=== PATIENT | male | born 1950 | race Caucasian/White ===

== ENCOUNTER 2017-01-01 13:45 | Emergency (ER) | payer OTHER, SELFPAY ==
[~2017-01-01 13:45] MED LIST: ASPIR 8181 MG PO; BRILINTA90 MG PO; COZAAR100 MG PO; GLUCOPHAGE 500500 MG PO; GLUCOTROL 10 MG10 MG PO; IMDUR ER TAB 6060 MG PO; JANUVIA25 MG PO; KLONOPIN TAB 00.5 MG PO; LIPITOR TAB 2020 MG PO; LOPRESSOR 25 MG25 MG PO; MEGACE 400400 MG/10 PO; NITROSTAT0.4 MG SL; NORCO 7.5-3251 EACH PO; PLAVIX 75 MG TA75 MG PO; REMERON15 MG PO
[2017-01-01 14:54] LABS: HEMOGLOBIN 14.7 gm/dl (14.0-17.5); RED BLOOD COUNT 5.06 M/UL (4.20-5.50); WHITE BLOOD COUNT 6.9 K/UL (4.5-11.0)
[2017-01-01 15:25] LABS: BUN/CREATININE RATIO 18 (0-10)
[2017-02-03] MEDS ORDERED: NORCO 7.5-3251 EACH PO (13:12)
== END 2017-01-01 19:58 | disposition home or self-care (01) ==
LOC: ER1 13:45
PROVIDERS: Specialist/Technologist Athletic Trainer
DX: K82.4 Cholesterolosis of gallbladder (principal); E11.65 Type 2 diabetes mellitus with hyperglycemia; J44.9 Chronic obstructive pulmonary disease, unspecified; I10 Essential (primary) hypertension; I25.2 Old myocardial infarction; Z95.5 Presence of coronary angioplasty implant and graft; Z87.891 Personal history of nicotine dependence; Z79.84 Long term (current) use of oral hypoglycemic drugs; Z79.891 Long term (current) use of opiate analgesic; Z79.899 Other long term (current) drug therapy; Z79.82 Long term (current) use of aspirin
CPT/HCPCS: 36415; 71010; 76705; 80053; 82550; 82553; 83690; 83874; 84484; 85025; 93005; 99284

== ENCOUNTER → 2017-02-03 | Day surgery (SDC) | payer OTHER, SELFPAY ==
[~2017-02-03] VITALS: Ht 172.7 cm; Wt 79.4 kg
[2017-02-03 08:22] LABS: BUN/CREATININE RATIO 13 (0-10)
== END | disposition home or self-care (01) ==
LOC: OR 06:14
PROVIDERS: Anesthesiology; Surgery
PROC: 0FT44ZZ Resection of Gallbladder, Percutaneous Endoscopic Approach (ICD-10-PCS; principal; 2017-02-03 10:55)
DX: R10.11 Right upper quadrant pain (principal); I25.10 Atherosclerotic heart disease of native coronary artery without angina pectoris; E11.9 Type 2 diabetes mellitus without complications; E78.5 Hyperlipidemia, unspecified; I25.2 Old myocardial infarction; M19.90 Unspecified osteoarthritis, unspecified site; I10 Essential (primary) hypertension; Z95.5 Presence of coronary angioplasty implant and graft; Z79.82 Long term (current) use of aspirin; Z79.891 Long term (current) use of opiate analgesic; Z79.899 Other long term (current) drug therapy; Z87.891 Personal history of nicotine dependence; Z85.828 Personal history of other malignant neoplasm of skin
CPT/HCPCS: 80048; 82962; 93005; J0295; J1100; J1885; J2250; J2405; J2710; J3010; J7030; J7050; J7120; Q9962

== ENCOUNTER 2021-03-14 22:55 | Emergency (ER) | payer OTHER ==
[~2021-03-14 22:55] MED LIST changes: +CIPRO500 MG PO; +DESYREL 50 MG T50 MG PO; +FLAGYL500 MG PO; -GLUCOPHAGE 500500 MG PO; +GLUCOPHAGE850 MG PO; +GLUCOTROL5 MG PO; +HYDROCHLOROTHIA25 MG PO; +LIPITOR40 MG PO; +NORVASC10 MG PO; +NOVOLOG MI100 UNIT/1 SQ
== END 2021-03-15 00:35 | disposition left against medical advice (07) ==
LOC: ER1 22:55
DX: Z53.21 Procedure and treatment not carried out due to patient leaving prior to being seen by health care provider (principal)

== ENCOUNTER 2021-12-12 02:04 | Observation (INO) | payer OTHER ==
[~2021-12-12] VITALS: Ht 172.7 cm; Wt 87.5 kg
[~2021-12-12 02:04] MED LIST changes: -LIPITOR40 MG PO; +LIPITOR80 MG PO
[2021-12-12 02:51] LABS: HEMOGLOBIN 14.3 gm/dl (14.0-17.5); RED BLOOD COUNT 4.84 M/UL (4.20-5.50); WHITE BLOOD COUNT 8.4 K/UL (4.5-11.0)
[2021-12-12] MEDS ORDERED: FUROSEMIDE20 MG PO (11:39)
[2021-12-12] MEDS ORDERED: PROAIR HFA8.5 GM INH (11:40)
[2021-12-12] MEDS ORDERED: METFORMIN HCL500 M2 PO (11:40)
[2021-12-12] MEDS ORDERED: NOVOLOG MI100 UNITS/ SQ (11:41)
[2021-12-12] MEDS ORDERED: POTASSIUM CHLO20 ME1 PO (11:43)
[2021-12-13 05:37] LABS: HEMOGLOBIN 14.1 gm/dl (14.0-17.5); RED BLOOD COUNT 4.77 M/UL (4.20-5.50); WHITE BLOOD COUNT 9.6 K/UL (4.5-11.0)
[2021-12-13] MEDS ORDERED: RANEXA500 MG PO (13:01)
[2021-12-13] MEDS ORDERED: K-TAB ER10 MEQ PO (18:20)
== END 2021-12-13 18:40 | disposition home or self-care (01) ==
LOC: ER1 02:04 → CDU 10:01 → CCU 20:24
PROVIDERS: Physician Assistant Medical; Student in an Organized Health Care Education/Training Program; ADMIT Internal Medicine
DX: R07.89 Other chest pain (principal); Z20.822 Contact with and (suspected) exposure to COVID-19; E87.6 Hypokalemia; I25.10 Atherosclerotic heart disease of native coronary artery without angina pectoris; E11.9 Type 2 diabetes mellitus without complications; I10 Essential (primary) hypertension; E78.5 Hyperlipidemia, unspecified; J44.9 Chronic obstructive pulmonary disease, unspecified; I25.2 Old myocardial infarction; Z79.02 Long term (current) use of antithrombotics/antiplatelets; Z79.4 Long term (current) use of insulin; Z79.82 Long term (current) use of aspirin; Z79.84 Long term (current) use of oral hypoglycemic drugs; Z79.899 Other long term (current) drug therapy; Z87.891 Personal history of nicotine dependence; Z95.5 Presence of coronary angioplasty implant and graft; Z98.2 Presence of cerebrospinal fluid drainage device
CPT/HCPCS: ECHO; 36415; 71045; 78452; 80048; 80053; 82550; 82553; 82962; 83036; 83735; 83874; 84132; 84484; 85025; 85027; 93005; 93017; 93306; 96374; 99285; A9502; G0378; J1940; J2785; U0002

== ENCOUNTER 2022-06-21 16:18 | Emergency (ER) | payer OTHER ==
[~2022-06-21 16:18] MED LIST changes: +FUROSEMIDE20 MG PO; +K-TAB ER10 MEQ PO; +METFORMIN HCL500 M2 PO; +NOVOLOG MI100 UNITS/ SQ; +POTASSIUM CHLO20 ME1 PO; +PROAIR HFA8.5 GM INH; +RANEXA500 MG PO
[2022-06-21 17:35] LABS: HEMOGLOBIN 12.3 gm/dl (14.0-17.5); RED BLOOD COUNT 4.25 M/UL (4.20-5.50); WHITE BLOOD COUNT 10.2 K/UL (4.5-11.0)
[2022-06-21] MEDS ORDERED: LASIX40 MG PO (21:35)
== END 2022-06-21 21:47 | disposition home or self-care (01) ==
LOC: ER1 16:18
DX: R60.0 Localized edema (principal); E11.9 Type 2 diabetes mellitus without complications; I11.0 Hypertensive heart disease with heart failure; I50.9 Heart failure, unspecified
CPT/HCPCS: 71045; 80053; 83880; 84484; 85025; 85379; 93005; 99284; J1940

== ENCOUNTER 2022-06-23 21:54 | Emergency (ER) | payer OTHER ==
[~2022-06-23 21:54] MED LIST changes: +LASIX40 MG PO
[2022-06-23 23:10] LABS: HEMOGLOBIN 12.4 gm/dl (14.0-17.5); RED BLOOD COUNT 4.35 M/UL (4.20-5.50); WHITE BLOOD COUNT 7.9 K/UL (4.5-11.0)
[2022-06-24] MEDS ORDERED: LEVOFLOXACIN750 MG PO (05:17)
== END 2022-06-24 05:28 | disposition home or self-care (01) ==
LOC: ER1 21:54
PROVIDERS: Physician Assistant
DX: J44.0 Chronic obstructive pulmonary disease with (acute) lower respiratory infection (principal); J18.9 Pneumonia, unspecified organism; E11.65 Type 2 diabetes mellitus with hyperglycemia; I25.10 Atherosclerotic heart disease of native coronary artery without angina pectoris; R04.2 Hemoptysis; R60.0 Localized edema; E87.6 Hypokalemia; G89.29 Other chronic pain; E11.9 Type 2 diabetes mellitus without complications; I10 Essential (primary) hypertension; Z79.82 Long term (current) use of aspirin; Z79.02 Long term (current) use of antithrombotics/antiplatelets; Z87.891 Personal history of nicotine dependence
CPT/HCPCS: 80053; 82550; 82553; 84484; 85025; 85610; 93005; 99284; J7040; Q9967

== ENCOUNTER → 2022-06-26 | Outpatient (CLI) | payer OTHER ==
[~2022-06-26] MED LIST changes: +LEVOFLOXACIN750 MG PO
== END ==
LOC: HEART 5 13:30
DX: R06.02 Shortness of breath (principal); I51.7 Cardiomegaly
CPT/HCPCS: 93306